=== PATIENT | male | born 2000 | race Caucasian/White ===

== ENCOUNTER 2024-09-26 07:17 | Emergency (ER) | payer BC, SELFPAY ==
--- NOTE | 2024-09-26 07:46 | RAD REPORT ---
EXAMINATION: ONE VIEW CHEST XR CLINICAL INDICATION: thoracic pain TECHNIQUE: Frontal chest projection is submitted. Examination is limited by patient positioning and t echnique. COMPARISON: No prior exam. FINDINGS: The lungs are well inflated and clear. The heart is normal in size. No displaced fractures identified . IMPRESSION: No acute intrathoracic abnormalities.
[2024-09-26 08:03] LABS: Absolute Eosinophils 0.1 K/uL (0-0.5); Absolute Monocytes 0.8 K/uL (0.1-1.3); Absolute Neutrophil 4.7 K/uL (1.8-8.0); Basophils % 0.3 % (0-1.3); Eosinophils % 1.4 % (0-4.4); Hematocrit 42.6 % (39.6-49.0); Hemoglobin 14.4 g/dL (13.6-17.9); Lymphocytes % 25.9 % (15.3-44.8); MCH 30.1 pg (27.0-35.0); MCHC 33.8 g/dL (32.0-36.0); MCV 89.2 fL (80-100); MPV 6.3 fL (7.6-11.3); Monocytes % 10.1 % (3.3-12.3); Neutrophils % 62.3 % (41.7-73.7); Nucleated Red Blood Cells % 0.1 % (0-0); Platelets 365 thou/uL (152-406); RBC Red Blood Cell Count 4.77 M/uL (4.33-5.43); Red Cell Distribution Width 12.5 % (12.1-15.2)
--- NOTE | 2024-09-26 08:14 | RAD REPORT ---
EXAMINATION: CTA CHEST PE CLINICAL INDICATION: thoracic pain TECHNIQUE: This examination was performed according to an angiographic protocol with 3D post-processi ng. This involves 3D reconstructions, MIPs, volume rendered images and/or shaded surface rendering. One or more of the following dose reduction techniques were used: Automated exposure control, adjustm ent of the mA and/or kV according to patient size, and/or iterative reconstruction. Unless otherwise specified, incidental findings do not require dedicated imaging follow-up. COMPARISON: No prior exam. FINDINGS: PULMONARY ARTERIES: Normal caliber. No evidence of pulmonary emboli to the subsegmental level. THORACIC AORTA: Normal caliber and configuration. LUNGS: No evidence of airspace or interstitial process. No nodules. PLEURA: No pleural effusion. No pneumothorax. MEDIASTINUM AND LYMPH NODES: No mediastinal mass or fluid collection. Normal size mediastinal, hilar, and axillary lymph nodes. OSSEOUS STRUCTURES AND CHEST WALL: Intact. UPPER ABDOMEN: No significant abnormalities. IMPRESSION: No evidence of pulmonary emboli to the subsegmental level.
[2024-09-26 08:20] LABS: Anion Gap 17.3 mEq/L (5.0-15.0); Potassium 4.3 mEq/L (3.5-5.1); Troponin High Sensitivity 3.6 pg/mL (<58.9)
--- NOTE | 2024-09-26 08:58 | EDPHYS ---
Physician Documentation [facility] Name: Luis Renee Age: 24 yrs Sex: Male : 2000 Arrival Date: 09/26/2024 Time: 07:17 Bed 4 Private MD: ED Physician Laith Ward HPI: 09/26 07:41 This 24 yrs old Male presents to ER via Ambulatory with complaints of Upper Back Pain. rn 07:41 The patient presents with pain that is acute. rn 07:41 The symptoms are located in the thoracic area. Onset: The symptoms/episode rn began/occurred yesterday. The pain does not radiate. Associated signs and symptoms: Pertinent negatives: abdominal pain, chest pain, fever, hematuria, incontinence, numbness, tingling, urinary retention, vomiting, weakness. Modifying factors: The patient symptoms are alleviated by nothing, the patient symptoms are aggravated by any movement. Severity of symptoms: At their worst the symptoms were moderate, in the emergency department the symptoms are unchanged. The patient has not experienced similar symptoms in the past. Patient reports upper back pain, mid scapular pain that began yesterday. Reports worked out Tuesday but does not recall acute injury. Denies any fever or chills. Reports mild cough but denies shortness of breath. No hemoptysis. No abdominal pain. No chest pain. No vomiting or diarrhea. Has chronic mid and lower back pain but has never had upper back pain. Patient reports had sudden onset back pain and hurts to move and take deep breath. No history of DVT or PE. Historical: - Allergies: 07:31 No Known Allergies; ll1 - Home Meds: 07:31 None [Active]; ll1 - PMHx: 07:31 None; ll1 - PSHx: 07:31 None; ll1 - Immunization history:: Adult Immunizations up to date. - Infectious Disease History:: Denies. - Social history:: Smoking status: Patient denies any tobacco usage or history of. - Family history:: not pertinent. - Hospitalizations: : No recent hospitalization is reported. ROS: 07:41 Constitutional: Negative for fever, chills, and weight loss, Cardiovascular: Negative rn for chest pain, palpitations, and edema, Respiratory: Negative for shortness of breath, cough, wheezing, and pleuritic chest pain, Abdomen/GI: Negative for abdominal pain, nausea, vomiting, diarrhea, and constipation, Back: Positive for upper back pain : Negative for injury, bleeding, discharge, and swelling, MS/Extremity: Negative for injury and deformity, Skin: Negative for injury, rash, and discoloration, Neuro: Negative for headache, weakness, numbness, tingling, and seizure, Exam: 07:41 Constitutional: This is a well developed, well nourished patient who is awake, alert, 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 No pulse deficits. Respiratory: No increased work of breathing, no retractions or nasal flaring. Abdomen/GI: Soft, non-tender Back: No spinal tenderness. Mild parathoracic muscular tenderness. No bony tenderness. MS/ Extremity: Pulses equal, no cyanosis. Neuro: Awake and alert, GCS 15, Motor strength 5/5 in all extremities. Sensory grossly intact. Normal gait. 08:16 ECG was reviewed by the Attending Physician. rn Vital Signs: 07:32 BP 133 / 69; Pulse 69; Resp 16; Temp 98(O); Pulse Ox 96% on R/A; Weight 63.5 kg; Height ll1 5 ft. 8 in. ; Pain 8/10; 07:32 Body Mass Index 21.29 (63.50 kg, 172.72 cm) ll1 07:32 Pain Scale: Adult ll1 MDM: 07:20 Medical Screening Exam initiated rn 08:57 Differential diagnosis: chronic back pain, ruptured disc, sprain, Muscle spasm, rn neuropathy, disc problem, pulmonary embolism, pulmonary problem. Data reviewed: vital signs, nurses notes, lab test result(s), EKG, radiologic studies, CT scan, plain films, and as a result, I will discharge patient. Independent interpretation of the following test(s) in the Emergency Department EKG: See my EKG interpretation above X-Ray: My interpretation is Chest x-ray images negative for pneumothorax per my interpretation. Counseling: I had a detailed discussion with the patient and/or guardian regarding the historical points, exam findings, and any diagnostic results supporting the discharge/admit diagnosis, lab results, radiology results, the need for outpatient follow up, to return to the emergency department if symptoms worsen or persist or if there are any questions or concerns that arise at home. Special discussion: I discussed with the patient/guardian in detail that at this point there is no indication for admission to the hospital. It is understood, however, that if the symptoms persist or worsen the patient needs to return immediately for re-evaluation. ED course: No acute findings and workup including x-ray of chest and CT PE protocol. ECG normal. Troponin negative. Most likely muscular spasm with possible disc problems and back given chronic mid and lower back problems. I have personally reviewed all of the results, including but not limited to blood tests and imaging deemed necessary to safely discharge this patient at this time. All results given to and printed out for patient. I personally went over all the results with the patient and answered all questions. Patient will follow-up with PCP and or specialist as discussed. Return precautions given and understood.. 09/26 07:30 Order name: Basic Metabolic Panel; Complete Time: 08:23 rn 09/26 07:30 Order name: CBC with Diff; Complete Time: 08:12 rn 09/26 07:30 Order name: Troponin HS; Complete Time: 08:23 rn 09/26 07:30 Order name: XRAY Chest (1 view); Complete Time: 07:47 rn 09/26 07:30 Order name: CT Chest For PE Angio; Complete Time: 08:16 rn 09/26 07:30 Order name: Cardiac monitoring; Complete Time: 08:02 rn 09/26 07:30 Order name: EKG - Nurse/Tech; Complete Time: 08:02 rn 09/26 07:30 Order name: IV Saline Lock; Complete Time: 08:02 rn 09/26 07:30 Order name: Labs collected and sent; Complete Time: 08:02 rn 09/26 07:30 Order name: O2 Per Protocol; Complete Time: 07:39 rn 09/26 07:30 Order name: O2 Sat Monitoring; Complete Time: 07:39 rn EC:16 Rate is 64 beats/min. Rhythm is regular. QRS Cameron is Normal. SD interval is normal. QRS rn interval is normal. QT interval is normal. No Q waves. T waves are Normal. No ST changes noted. Clinical impression: Normal ECG. Interpreted by me. Reviewed by me. Administered Medications: :13 Drug: Ketorolac IVP 30 mg IVP once Route: IVP; Site: left antecubital; 09:13 Follow up: Response: No adverse reaction; Medication administered at discharge. Disposition Summary: 09/26/24 08:58 Discharge Ordered Notes: Location: Home rn Problem: new rn Symptoms: have improved rn Condition: Stable rn Diagnosis - Upper back pain rn Followup: rn - With: Private Physician - When: As needed - Reason: Recheck today's complaints, Re-evaluation by your physician Discharge Instructions: - Discharge Summary Sheet rn - Acute Back Pain, Adult rn Forms: - Medication Reconciliation Form rn - Antibiotic yarn spooler - Prescription Opioid Use rn - Patient Portal Instructions rn - Leadership Thank You Letter rn - Work release form ll1 Prescriptions: - Cyclobenzaprine 10 mg Oral tablet - take 1 tablet ORAL route 1-2 times daily As needed; 12 tablet; Refills: 0, rn Product Selection Permitted - Diclofenac Sodium 75 mg Oral tablet, delayed release (enteric coated) - take 1 tablet ORAL route 2 times per day As needed; 14 tablet; Refills: 0, rn Product Selection Permitted Signatures: Dispatcher [employer] EDMS Laith Ward MD MD rn Hall, Patricia, RN RN [facility] RN 1 Corrections: (The following items were deleted from the chart) 07:31 07:31 BASIC METABOLIC PANEL+C.LAB.BRZ ordered. EDMS EDMS 07:31 07:31 CBC+H.LAB.BRZ ordered. EDMS EDMS 07:31 07:31 Troponin High Sensitivity+C.LAB.BRZ ordered. EDMS EDMS 07:31 07:31 Chest Single View+RAD.RAD.BRZ ordered. EDMS EDMS 07:31 07:31 Chest For PE Angio+CT.RAD.BRZ ordered. EDMS EDMS
--- NOTE | 2024-09-26 08:58 | ER ---
Nurse's Notes [facility] Name: Luis Renee Age: 24 yrs Sex: Male : 2000 Arrival Date: 09/26/2024 Time: 07:17 Bed 4 Private MD: Diagnosis: Upper back pain Presentation: 09/26 07:32 Chief complaint: Patient states: Upper back pain started yesterday. States he worked ll1 out Tuesday. Coronavirus screen: Client denies travel out of the [place] in the last 14 days. At this time, the client does not indicate any symptoms associated with coronavirus-19. Ebola Screen: Patient denies travel to an Ebola-affected area in the 21 days before illness onset. Initial Sepsis Screen: Does the patient meet any 2 criteria? No. Patient's initial sepsis screen is negative. Does the patient have a suspected source of infection? No. Patient's initial sepsis screen is negative. Risk Assessment: Do you want to hurt yourself or someone else? Patient reports no desire to harm self or others. Onset of symptoms was September 25, 2024. 07:32 Method Of Arrival: Ambulatory ll1 07:32 Acuity: ELIDA 3 ll1 Triage Assessment: 07:33 General: Appears uncomfortable, Behavior is calm, cooperative, appropriate for age. ll1 Pain: Complains of pain in upper back Quality of pain is described as aching. Musculoskeletal: Reports pain in back. Historical: - Allergies: 07:31 No Known Allergies; ll1 - Home Meds: 07:31 None [Active]; ll1 - PMHx: 07:31 None; ll1 - PSHx: 07:31 None; ll1 - Immunization history:: Adult Immunizations up to date. - Infectious Disease History:: Denies. - Social history:: Smoking status: Patient denies any tobacco usage or history of. - Family history:: not pertinent. - Hospitalizations: : No recent hospitalization is reported. Screenin:00 [facility] ED Fall Risk Assessment (Adult) History of falling in the last 3 months, ph including since admission No falls in past 3 months (0 pts) Confusion or Disorientation No (0 pts) Intoxicated or Sedated No (0 pts) Impaired Gait No (0 pts) Mobility Assist Device Used No (0 pt) Altered Elimination No (0 pt) Score/Fall Risk Level 0 - 2 = Low Risk Oriented to surroundings, Maintained a safe environment, Hourly rounding (assess needs \T\ fall precautionary measures) done. Abuse screen: Denies threats or abuse. Denies injuries from another. Nutritional screening: No deficits noted. Tuberculosis screening: No symptoms or risk factors identified. Assessment: 08:01 General: Appears in no apparent distress. comfortable, well groomed, Behavior is calm, ph cooperative, appropriate for age. Pain: Complains of pain in thoracic area. Neuro: Level of Consciousness is awake, alert, obeys commands, Oriented to person, place, time, situation. Cardiovascular: Reports chest pain, Capillary refill < 3 seconds in bilateral fingers Patient's skin is warm and dry. Rhythm is regular. Respiratory: Reports shortness of breath pain with respiration. Respiratory: Breath sounds are clear bilaterally. Derm: Skin is pink, warm \T\ dry. Vital Signs: 07:32 BP 133 / 69; Pulse 69; Resp 16; Temp 98(O); Pulse Ox 96% on R/A; Weight 63.5 kg; Height ll1 5 ft. 8 in. ; Pain 8/10; 07:32 Body Mass Index 21.29 (63.50 kg, 172.72 cm) ll1 07:32 Pain Scale: Adult ll1 ED Course: 07:20 Patient arrived in ED. cj3 07:20 Laith Ward MD is Attending Physician. rn 07:25 Arm band placed on Patient placed in an exam room, on a stretcher. ll1 07:33 Triage completed. ll1 07:33 Dot Ordaz, RN is Primary Nurse. ph 07:39 XRAY Chest (1 view) In Process Unspecified. EDMS 08:00 Initial lab(s) drawn, by me, sent to lab. EKG done, by ED staff, reviewed by Laith Ward MD. Inserted saline lock: 22 gauge in left antecubital area, using aseptic technique. Blood collected. Flushed with 10 mL NS. 08:01 Patient has correct armband on for positive identification. Bed in low position. Call ph light in reach. Side rails up X 1. Pulse ox on. NIBP on. Door closed. Noise minimized. 08:02 Basic Metabolic Panel Sent. ph 08:02 CBC with Diff Sent. ph 08:02 Troponin HS Sent. ph 08:06 CT Chest For PE Angio In Process Unspecified. EDMS 09:14 No provider procedures requiring assistance completed. IV discontinued, intact, ph bleeding controlled, No redness/swelling at site. Pressure dressing applied. Administered Medications: 09:13 Drug: Ketorolac IVP 30 mg IVP once Route: IVP; Site: left antecubital; ph 09:13 Follow up: Response: No adverse reaction; Medication administered at discharge. ph Medication: 08:01 VIS not applicable for this client. ph Outcome: 08:58 Discharge ordered by . rn 09:14 Discharged to home ambulatory, ph 09:14 Condition: good 09:14 Discharge instructions given to patient, Instructed on discharge instructions, Demonstrated understanding of instructions, follow-up care, medications, Prescriptions given X 2, 09:15 Patient left the ED. ph Signatures: Dispatcher [employer] EDMS Laith Ward MD MD rn Hall, Patricia, RN RN ph Ilene Campos RN RN [facility]
[2024-09-26] MEDS ORDERED: KETOROLAC 30 MG/ML INJ ONE (09:07)
[2024-09-26 09:19] VITALS: BP 133/69; TEMP 98; O2SAT 96
--- NOTE | 2024-09-28 14:48 | EKG ---
Test Date: 2024-09-26 Test Time: 07:52:10 Sr. Vendor Management Associate: RAJANI MEASUREMENT RESULTS: Intervals: Rate: 64 TN: 130 QRSD: 90 QT: 390 QTc: 402 [place]: P: 42 TN: 130 QRS: 88 T: 65 INTERPRETIVE STATEMENTS: Normal sinus rhythm Normal ECG No previous ECG available for comparison Electronically Signed On 09-28-24 14:42:59 CDT by Tim Leung
== END 2024-09-26 09:15 | disposition home or self-care (01) ==
LOC: ER 07:17
DX: M54.9 Dorsalgia, unspecified (principal)
CPT/HCPCS: 93005; 85025; 80048; 36415; 84484; 71275; 71045; Q9967; 96374; 99284